=== PATIENT | female | born 1980 | race African-American/Black ===

== ENCOUNTER 2017-11-24 18:18 | Inpatient (IN) ==
[2017-11-24] MEDS ORDERED: SODIUM CHLORIDE 0.9% 500 ML IV STA (19:17)
[2017-11-24 20:00] LABS: Barbiturates Screen,Urine Negative (Negative); Benzodiazepines Screen,Urine Negative (Negative); Cannabinoid Screen,Urine Positive (Negative); Opiate Screen,Urine Positive (Negative); Phencyclidine Screen,Urine Negative (Negative)
[2017-11-24 20:01] LABS: Apearance,Urine CLEAR (Clear); Bilirubin,Urine Negative (Negative); Blood, Urine Negative (Negative); Glucose,Urine (UA) Negative (Negative); Ketones,Urine 20 mg/dL (Negative); Mucus,Urine Occasional /LPF (Occasional); Nitrite,Urine Negative (Negative); Protein,Urine Negative; RBC,Urine <1 /HPF (0-4); Squamous Epithelial Cell,Urine Occasional /HPF (0-10); Urine Color Yellow (Yellow); Urine Specific Gravity 1.013 (1.001-1.035); Urine Urobilinogen < 2.0 EU/DL (0.2-1.0); WBC,Urine 1 /HPF (0-6)
[2017-11-24 20:47] LABS: INR 1.2; PT Patient Result 12.6 SECS; Partial Thromboplastin Time < 21.0 SECS (0-40)
[2017-11-24 21:07] LABS: Troponin I Only < 0.015 NG/ML (0.00-0.045)
[2017-11-24 21:18] LABS: Basophils % 0.7 % (0.0-0.8); Eosinophils % 0.5 % (0.00-10.9); Hematocrit 38.6 VOL% (35.7-47.0); Immature Granulocytes % 0.2 %; Immature Granulocytes Absolute 0.01 #; Lymphocytes # 0.8 10*3/uL (1.4-4.0); Lymphocytes % 20.1 % (21.3-54.2); Mean Corpuscular HGB Conc 33.7 GM/DL (32-36); Mean Corpuscular Hemoglobin 33 PG (27-34); Mean Corpuscular Volume 97.2 FL (87-102); Mean Platelet Volume 10.9 FL (9.6-12.0); Monocytes # 0.4 10*3/uL (0.11-0.8); Monocytes % 10.3 % (1.7-12.7); Neutrophils # 2.8 10*3/uL (1.4-7.4); Neutrophils % 68.2 % (38.7-73.9); Platelet Count 134 T/CUMM (130-400); Red Blood Count 3.97 MC/CUMM (3.8-5.5); Red Cell Distribution Width 14.2 % (9.3-17.3); White Blood Count 4.1 T/CUMM (4-12)
[2017-11-24 21:27] LABS: Alanine Aminotransferase 23 U/L (13-56); Alkaline Phosphatase 147 U/L (45-117); Aspartate Amino Transferase 21 U/L (0-37); Blood Urea Nitrogen 9 MG/DL (7-18); Calcium 9.2 MG/DL (8.5-10.1); Glucose 86 MG/DL (74-106); Osmolality,Calculated 276.4 MOS/KG (273-304); Sodium 140 MMOL/L (136-145); Total Protein 7.1 G/DL (6.4-8.3)
[2017-11-24] MEDS ORDERED: fentaNYL 100 MCG/2 ML VIAL ONE (21:40)
[2017-11-24] MEDS ORDERED: ONDANSETRON 4 MG/2 ML VIAL ONE (21:40)
[2017-11-24] MEDS ORDERED: METOPROLOL TARTRATE 5 MG/5 ML VIAL IV ONE ×2 (23:34→23:41)
[2017-11-25] MEDS ORDERED: NICOTINE 14 MG/24 HR PATCH TRANSDERM PRN (00:45)
[2017-11-25] MEDS ORDERED: ONDANSETRON 4 MG/2 ML VIAL IV PRN (00:45)
[2017-11-25] MEDS ORDERED: ZALEPLON 5 MG CAPSULE PO PRN (00:45)
[2017-11-25] MEDS ORDERED: GABAPENTIN 50 MG/ML 30 ML/BOTTLE PO ONE (01:00)
[2017-11-25] MEDS: METOPROLOL TARTRATE 5 MG/5 ML VIAL IV SCH ×4 (01:02→17:28)
[2017-11-25] MEDS: clonazePAM 0.5 MG TABLET PO SCH ×3 (01:02→20:25)
[2017-11-25] MEDS: hydrALAZINE 20 MG/1 ML VIAL IV PRN (04:34)
[2017-11-25] MEDS: GABAPENTIN 300 MG CAPSULE PO SCH ×5 (05:35→20:25)
[2017-11-25] MEDS: amLODIPine 5 MG TABLET PO SCH (08:29)
[2017-11-25] MEDS: PANTOPRAZOLE 40 MG TABLET PO SCH (08:29)
[2017-11-25] MEDS: DOCUSATE SODIUM 100 MG CAPSULE PO SCH ×2 (08:30→20:26)
[2017-11-25] MEDS: methylPREDNISolone SOD SUC 125 MG/2 ML VIAL IV SCH ×2 (08:30→20:11)
[2017-11-25] MEDS ORDERED: ENOXAPARIN 40 MG/0.4 ML SYRINGE SUBCUT SCH (09:00)
[2017-11-25] MEDS ORDERED: diphenhydrAMINE 50 MG/1 ML VIAL IV ONE (10:14)
[2017-11-25] MEDS ORDERED: LORazepam 2 MG/1 ML VIAL IV ONE (11:30)
[2017-11-25 20:14] LABS: Alanine Aminotransferase 26 U/L (13-56); Albumin 3.9 G/DL (3.4-5.0); Alkaline Phosphatase 148 U/L (45-117); Aspartate Amino Transferase 21 U/L (0-37); Bilirubin,Total < 0.39 MG/DL (0.2-1.0); Blood Urea Nitrogen 14 MG/DL (7-18); Glucose 146 MG/DL (74-106); Osmolality,Calculated 282.4 MOS/KG (273-304); Potassium 4.1 MMOL/L (3.5-5.1); Sodium 140 MMOL/L (136-145); Total Protein 7.1 G/DL (6.4-8.3)
[2017-11-25 21:00] LABS: Basophils % 0.2 % (0.0-0.8); Hematocrit 40.1 VOL% (35.7-47.0); Hemoglobin 13.3 GM/DL (12.0-16.0); Immature Granulocytes % 0.3 %; Immature Granulocytes Absolute 0.02 #; Lymphocytes # 0.8 10*3/uL (1.4-4.0); Lymphocytes % 13.4 % (21.3-54.2); Mean Corpuscular HGB Conc 33.2 GM/DL (32-36); Mean Corpuscular Hemoglobin 32 PG (27-34); Mean Corpuscular Volume 97.8 FL (87-102); Mean Platelet Volume 11.3 FL (9.6-12.0); Monocytes # 0.4 10*3/uL (0.11-0.8); Monocytes % 7.3 % (1.7-12.7); Neutrophils # 4.7 10*3/uL (1.4-7.4); Neutrophils % 78.8 % (38.7-73.9); Platelet Count 181 T/CUMM (130-400); Red Cell Distribution Width 13.9 % (9.3-17.3); White Blood Count 5.9 T/CUMM (4-12)
[2017-11-26] MEDS: METOPROLOL TARTRATE 5 MG/5 ML VIAL IV SCH ×3 (00:37→13:32)
[2017-11-26 06:42] LABS: Hemoglobin 13.3 GM/DL (12.0-16.0); Immature Granulocytes % 0.5 %; Immature Granulocytes Absolute 0.03 #; Lymphocytes # 0.5 10*3/uL (1.4-4.0); Lymphocytes % 8.9 % (21.3-54.2); Mean Corpuscular HGB Conc 34.1 GM/DL (32-36); Mean Corpuscular Hemoglobin 33 PG (27-34); Mean Corpuscular Volume 97.3 FL (87-102); Mean Platelet Volume 11.4 FL (9.6-12.0); Monocytes # 0.5 10*3/uL (0.11-0.8); Monocytes % 7.7 % (1.7-12.7); Neutrophils # 5.1 10*3/uL (1.4-7.4); Neutrophils % 82.9 % (38.7-73.9); Platelet Count 174 T/CUMM (130-400); Red Blood Count 4.01 MC/CUMM (3.8-5.5); Red Cell Distribution Width 14.1 % (9.3-17.3); White Blood Count 6.1 T/CUMM (4-12)
[2017-11-26 07:14] LABS: Albumin 3.7 G/DL (3.4-5.0); Bilirubin,Total 0.4 MG/DL (0.2-1.0); Calcium 9.1 MG/DL (8.5-10.1); Osmolality,Calculated 284.3 MOS/KG (273-304); Potassium 4.3 MMOL/L (3.5-5.1); Total Protein 6.9 G/DL (6.4-8.3)
[2017-11-26] MEDS: GABAPENTIN 300 MG CAPSULE PO SCH ×4 (08:42→22:32)
[2017-11-26] MEDS: DOCUSATE SODIUM 100 MG CAPSULE PO SCH ×2 (08:42→22:32)
[2017-11-26] MEDS: amLODIPine 5 MG TABLET PO SCH (08:42)
[2017-11-26] MEDS: PANTOPRAZOLE 40 MG TABLET PO SCH (08:42)
[2017-11-26] MEDS: clonazePAM 0.5 MG TABLET PO SCH ×2 (08:42→22:32)
[2017-11-26] MEDS: methylPREDNISolone SOD SUC 125 MG/2 ML VIAL IV SCH ×2 (08:54→22:34)
[2017-11-26] MEDS ORDERED: LORazepam 2 MG/1 ML VIAL IV ONE (11:00)
[2017-11-26] MEDS ORDERED: diphenhydrAMINE 50 MG/1 ML VIAL IV ONE (11:00)
[2017-11-26] MEDS: METOPROLOL TARTRATE 50 MG TABLET PO SCH ×2 (15:15→22:32)
[2017-11-26 15:26] LABS: Glucose,CSF 76 MG/DL (40-70)
[2017-11-26 16:03] LABS: Appearance,CSF Clear; Lymphocytes,CSF 100 %; Red Blood Cell,CSF 9 C/CUMM; White Blood Cell,CSF < 1 C/CUMM
[2017-11-27] MEDS ORDERED: ACETAMINOPHEN 500 MG TABLET PO ONE (00:25)
[2017-11-27] MEDS: GABAPENTIN 300 MG CAPSULE PO SCH ×4 (08:13→21:11)
[2017-11-27] MEDS: clonazePAM 0.5 MG TABLET PO SCH ×2 (08:13→21:11)
[2017-11-27] MEDS: METOPROLOL TARTRATE 50 MG TABLET PO SCH ×2 (08:13→21:11)
[2017-11-27] MEDS: DOCUSATE SODIUM 100 MG CAPSULE PO SCH ×2 (08:13→21:11)
[2017-11-27] MEDS: amLODIPine 5 MG TABLET PO SCH ×2 (08:14→21:11)
[2017-11-27] MEDS: PANTOPRAZOLE 40 MG TABLET PO SCH (08:14)
[2017-11-27 09:12] LABS: Eosinophils % 0.1 % (0.00-10.9); Hematocrit 39.7 VOL% (35.7-47.0); Hemoglobin 13.1 GM/DL (12.0-16.0); Immature Granulocytes % 0.6 %; Immature Granulocytes Absolute 0.05 #; Lymphocytes # 0.9 10*3/uL (1.4-4.0); Lymphocytes % 10.1 % (21.3-54.2); Mean Corpuscular Hemoglobin 33 PG (27-34); Mean Platelet Volume 11.3 FL (9.6-12.0); Monocytes # 0.6 10*3/uL (0.11-0.8); Monocytes % 7.2 % (1.7-12.7); Neutrophils # 7.2 10*3/uL (1.4-7.4); Platelet Count 176 T/CUMM (130-400); Red Blood Count 4.01 MC/CUMM (3.8-5.5); White Blood Count 8.7 T/CUMM (4-12)
[2017-11-27 09:32] LABS: Alanine Aminotransferase 21 U/L (13-56); Albumin 3.8 G/DL (3.4-5.0); Alkaline Phosphatase 148 U/L (45-117); Aspartate Amino Transferase 11 U/L (0-37); Bilirubin,Total < 0.39 MG/DL (0.2-1.0); Blood Urea Nitrogen 16 MG/DL (7-18); Calcium 8.6 MG/DL (8.5-10.1); Glucose 138 MG/DL (74-106); Osmolality,Calculated 281.4 MOS/KG (273-304); Potassium 4.1 MMOL/L (3.5-5.1); Sodium 140 MMOL/L (136-145)
[2017-11-27] MEDS: methylPREDNISolone SOD SUC 125 MG/2 ML VIAL IV SCH ×2 (09:35→21:04)
[2017-11-27] MEDS: hydrALAZINE 20 MG/1 ML VIAL IV PRN ×2 (09:37→15:09)
[2017-11-27] MEDS: hydroCHLOROthiazide 25 MG TABLET PO SCH (17:05)
[2017-11-28 06:56] LABS: Basophils % 0.1 % (0.0-0.8); Eosinophils % 0.1 % (0.00-10.9); Hematocrit 42.6 VOL% (35.7-47.0); Hemoglobin 14.1 GM/DL (12.0-16.0); Immature Granulocytes % 0.4 %; Immature Granulocytes Absolute 0.03 #; Lymphocytes # 0.9 10*3/uL (1.4-4.0); Lymphocytes % 11.2 % (21.3-54.2); Mean Corpuscular HGB Conc 33.1 GM/DL (32-36); Mean Corpuscular Hemoglobin 33 PG (27-34); Mean Corpuscular Volume 98.2 FL (87-102); Mean Platelet Volume 11.1 FL (9.6-12.0); Monocytes # 0.9 10*3/uL (0.11-0.8); Monocytes % 11.1 % (1.7-12.7); Neutrophils # 6.5 10*3/uL (1.4-7.4); Neutrophils % 77.1 % (38.7-73.9); Platelet Count 155 T/CUMM (130-400); Red Blood Count 4.34 MC/CUMM (3.8-5.5); Red Cell Distribution Width 14.1 % (9.3-17.3); White Blood Count 8.4 T/CUMM (4-12)
[2017-11-28 07:27] LABS: Albumin 4.1 G/DL (3.4-5.0); Bilirubin,Total 0.4 MG/DL (0.2-1.0); Calcium 9.2 MG/DL (8.5-10.1); Osmolality,Calculated 277.5 MOS/KG (273-304); Total Protein 7.2 G/DL (6.4-8.3)
[2017-11-28 07:51] LABS: Hypochromasia 1+
[2017-11-28 07:52] LABS: Platelet Estimate Adequate
[2017-11-28] MEDS: amLODIPine 5 MG TABLET PO SCH ×2 (08:00→21:24)
[2017-11-28] MEDS: hydroCHLOROthiazide 25 MG TABLET PO SCH (08:00)
[2017-11-28] MEDS: clonazePAM 0.5 MG TABLET PO SCH ×3 (08:01→23:31)
[2017-11-28] MEDS: METOPROLOL TARTRATE 50 MG TABLET PO SCH ×2 (08:01→21:25)
[2017-11-28] MEDS: GABAPENTIN 300 MG CAPSULE PO SCH ×4 (08:01→21:24)
[2017-11-28] MEDS: PANTOPRAZOLE 40 MG TABLET PO SCH (08:01)
[2017-11-28] MEDS: methylPREDNISolone SOD SUC 125 MG/2 ML VIAL IV SCH ×2 (08:01→21:25)
[2017-11-28] MEDS: DOCUSATE SODIUM 100 MG CAPSULE PO SCH ×2 (08:01→21:24)
[2017-11-28] MEDS: hydrALAZINE 20 MG/1 ML VIAL IV PRN (15:45)
[2017-11-28] MEDS: oxyCODONE IR 5 MG TABLET PO PRN (21:25)
[2017-11-28] MEDS: METHOCARBAMOL 750 MG TABLET PO PRN (21:25)
[2017-11-29] MEDS: PANTOPRAZOLE 40 MG TABLET PO SCH (09:34)
[2017-11-29] MEDS: hydroCHLOROthiazide 25 MG TABLET PO SCH (09:34)
[2017-11-29] MEDS: METOPROLOL TARTRATE 50 MG TABLET PO SCH ×2 (09:34→21:09)
[2017-11-29] MEDS: amLODIPine 5 MG TABLET PO SCH ×2 (09:34→21:09)
[2017-11-29] MEDS: DOCUSATE SODIUM 100 MG CAPSULE PO SCH ×2 (09:34→21:09)
[2017-11-29] MEDS: GABAPENTIN 300 MG CAPSULE PO SCH ×4 (09:34→21:09)
[2017-11-29] MEDS: methylPREDNISolone SOD SUC 125 MG/2 ML VIAL IV SCH ×2 (09:35→21:14)
[2017-11-29] MEDS: clonazePAM 0.5 MG TABLET PO SCH (09:35)
[2017-11-29] MEDS: oxyCODONE IR 5 MG TABLET PO PRN ×2 (09:42→16:13)
[2017-11-29] MEDS: METHOCARBAMOL 750 MG TABLET PO PRN ×2 (09:42→16:13)
[2017-11-30] MEDS: clonazePAM 0.5 MG TABLET PO SCH ×3 (00:01→20:57)
[2017-11-30] MEDS: PANTOPRAZOLE 40 MG TABLET PO SCH (08:56)
[2017-11-30] MEDS: hydroCHLOROthiazide 25 MG TABLET PO SCH (08:56)
[2017-11-30] MEDS: amLODIPine 5 MG TABLET PO SCH ×2 (08:56→20:57)
[2017-11-30] MEDS: DOCUSATE SODIUM 100 MG CAPSULE PO SCH ×2 (08:56→20:57)
[2017-11-30] MEDS: GABAPENTIN 300 MG CAPSULE PO SCH ×4 (08:56→20:57)
[2017-11-30] MEDS: methylPREDNISolone SOD SUC 125 MG/2 ML VIAL IV SCH ×2 (09:08→21:25)
[2017-11-30] MEDS: oxyCODONE IR 5 MG TABLET PO PRN ×3 (09:35→20:56)
[2017-11-30] MEDS: METOPROLOL TARTRATE 50 MG TABLET PO SCH ×3 (09:35→20:57)
[2017-11-30] MEDS: METHOCARBAMOL 750 MG TABLET PO PRN ×3 (09:57→20:57)
[2017-11-30] MEDS: ACETAMINOPHEN 325 MG TABLET PO PRN (15:13)
[2017-12-01] MEDS ORDERED: LACTULOSE 20 GM/30 ML UDCUP PO ONE (08:14)
[2017-12-01] MEDS ORDERED: SODIUM PHOSPHATE ENEMA 133 ML BOTTLE RECTAL ONE (08:14)
[2017-12-01] MEDS: clonazePAM 0.5 MG TABLET PO SCH (08:48)
[2017-12-01] MEDS: hydroCHLOROthiazide 25 MG TABLET PO SCH (08:48)
[2017-12-01] MEDS: DOCUSATE SODIUM 100 MG CAPSULE PO SCH (08:48)
[2017-12-01] MEDS: GABAPENTIN 300 MG CAPSULE PO SCH (08:48)
[2017-12-01] MEDS: METOPROLOL TARTRATE 50 MG TABLET PO SCH (08:48)
[2017-12-01] MEDS: amLODIPine 5 MG TABLET PO SCH (08:53)
[2017-12-01] MEDS: PANTOPRAZOLE 40 MG TABLET PO SCH (08:54)
[2017-12-01] MEDS: oxyCODONE IR 5 MG TABLET PO PRN (08:54)
[2017-12-01] MEDS: METHOCARBAMOL 750 MG TABLET PO PRN (08:54)
[2017-12-01] MEDS: methylPREDNISolone SOD SUC 125 MG/2 ML VIAL IV SCH (10:31)
[2017-12-01] MEDS: ACETAMINOPHEN 325 MG TABLET PO PRN (10:48)
[2017-12-01] MEDS ORDERED: HEPARIN LOCK FLUSH 500 UNIT/5 ML SYRINGE IV ONE (11:27)
[2017-12-01 12:17] VITALS: BP 148/99
== END 2017-12-01 12:11 | disposition swing bed (61) | DRG 52 ==
LOC: N.ED 18:18 → N.EDINP 23:25 → N.2E 11-25 00:09 → N.4E 11-28 16:14
PROVIDERS: ADMIT Internal Medicine; ATTEND Internal Medicine

== ENCOUNTER 2017-12-15 19:03 | Inpatient (IN) ==
[2017-12-15] MEDS ORDERED: cefTRIAXone 1,000 MG in SODIUM CHLORIDE 0.9% 100 ML IV STA (20:11)
[2017-12-15] MEDS ORDERED: SODIUM CHLORIDE 0.9% 500 ML IV STA (20:11)
[2017-12-15] MEDS ORDERED: cefTRIAXone 1,000 MG VIAL ONE (21:27)
[2017-12-15] MEDS ORDERED: ACETAMINOPHEN 500 MG TABLET ONE (21:28)
[2017-12-15 21:35] LABS: Basophils % 0.3 % (0.0-0.8); Hematocrit 32.8 VOL% (35.7-47.0); Hemoglobin 11.7 GM/DL (12.0-16.0); Immature Granulocytes % 0.3 %; Immature Granulocytes Absolute 0.02 #; Lymphocytes # 0.5 10*3/uL (1.4-4.0); Lymphocytes % 8.1 % (21.3-54.2); Mean Corpuscular HGB Conc 35.7 GM/DL (32-36); Mean Corpuscular Hemoglobin 33 PG (27-34); Mean Corpuscular Volume 93.2 FL (87-102); Mean Platelet Volume 10.7 FL (9.6-12.0); Monocytes # 0.9 10*3/uL (0.11-0.8); Monocytes % 13.9 % (1.7-12.7); Neutrophils # 4.9 10*3/uL (1.4-7.4); Neutrophils % 77.4 % (38.7-73.9); Platelet Count 142 T/CUMM (130-400); Red Blood Count 3.52 MC/CUMM (3.8-5.5); White Blood Count 6.3 T/CUMM (4-12)
[2017-12-15 21:44] LABS: INR 1.1
[2017-12-15 21:53] LABS: Lactic Acid 0.8 MMOL/L (0.4-2.0)
[2017-12-15 21:54] LABS: Albumin 2.9 G/DL (3.4-5.0); Bilirubin,Total 0.5 MG/DL (0.2-1.0); Calcium 8.8 MG/DL (8.5-10.1); Total Protein 6.6 G/DL (6.4-8.3)
[2017-12-15] MEDS ORDERED: ACETAMINOPHEN 500 MG TABLET PO STA (21:54)
[2017-12-15] MEDS ORDERED: HYDROmorphone 2 MG/1 ML VIAL ONE (21:59)
[2017-12-15] MEDS ORDERED: HYDROmorphone 2 MG/1 ML VIAL IV STA (22:00)
[2017-12-15] MEDS ORDERED: POTASSIUM CHLORIDE 20 MEQ TABLET PO STA (22:38)
[2017-12-15 22:45] LABS: Apearance,Urine CLOUDY (Clear); Bilirubin,Urine Negative (Negative); Blood, Urine Small mg/dL (Negative); Glucose,Urine (UA) Negative (Negative); Ketones,Urine 20 mg/dL (Negative); Mucus,Urine Occasional /LPF (Occasional); Nitrite,Urine Negative (Negative); Protein,Urine 100 MG/DL; RBC,Urine 38 /HPF (0-4); Urine Color Yellow (Yellow); WBC,Urine 402 /HPF (0-6)
[2017-12-16] MEDS ORDERED: POTASSIUM CHLORIDE 20 MEQ TABLET PO ONE ×2 (00:07→10:07)
[2017-12-16] MEDS: LEVOFLOXACIN INJ 500 MG in PREMIX 1 EACH IV SCH (02:29)
[2017-12-16] MEDS: SODIUM CHLORIDE 0.9% 1,000 ML IV SCH ×2 (02:30→15:47)
[2017-12-16 06:17] LABS: Basophils % 0.4 % (0.0-0.8); Eosinophils % 0.2 % (0.00-10.9); Hematocrit 33.5 VOL% (35.7-47.0); Hemoglobin 11.7 GM/DL (12.0-16.0); Immature Granulocytes % 0.4 %; Immature Granulocytes Absolute 0.02 #; Lymphocytes # 0.5 10*3/uL (1.4-4.0); Lymphocytes % 8.8 % (21.3-54.2); Mean Corpuscular HGB Conc 34.9 GM/DL (32-36); Mean Corpuscular Hemoglobin 33 PG (27-34); Mean Corpuscular Volume 93.1 FL (87-102); Mean Platelet Volume 10.8 FL (9.6-12.0); Monocytes # 0.7 10*3/uL (0.11-0.8); Monocytes % 12.6 % (1.7-12.7); Neutrophils # 4.3 10*3/uL (1.4-7.4); Neutrophils % 77.6 % (38.7-73.9); Platelet Count 135 T/CUMM (130-400); Red Cell Distribution Width 12.2 % (9.3-17.3); White Blood Count 5.5 T/CUMM (4-12)
[2017-12-16 06:35] LABS: Band Neutrophils 2 % (0-10); Burr Cells Slight; Giant Platelets Few; Hypochromasia 1+; Lymphocytes 5 % (20-55); Microcytosis Slight; Ovalocytes Slight; Platelet Estimate Normal; Segmented Neutrophils 81 % (50-85); Total Cells Counted 100
[2017-12-16 06:48] LABS: Calcium 8.6 MG/DL (8.5-10.1); Osmolality,Calculated 276.4 MOS/KG (273-304); Potassium 3.4 MMOL/L (3.5-5.1)
[2017-12-16] MEDS: ENOXAPARIN 40 MG/0.4 ML SYRINGE SUBCUT SCH (08:09)
[2017-12-16] MEDS: PANTOPRAZOLE 40 MG TABLET PO SCH (08:09)
[2017-12-16] MEDS: ACETAMINOPHEN 325 MG TABLET PO PRN ×3 (09:10→23:27)
[2017-12-16] MEDS ORDERED: PROCHLORPERAZINE 10 MG TABLET PO PRN (11:00)
[2017-12-16] MEDS: MULTIVITAMIN (BEROCCA) TABLET PO SCH (11:17)
[2017-12-16] MEDS: GABAPENTIN 300 MG CAPSULE PO SCH ×3 (13:49→21:59)
[2017-12-16] MEDS: NICOTINE 14 MG/24 HR PATCH TRANSDERM PRN (15:47)
[2017-12-16] MEDS: FAMOTIDINE 20 MG TABLET PO SCH (21:56)
[2017-12-16] MEDS: clonazePAM 0.5 MG TABLET PO SCH (21:57)
[2017-12-16] MEDS: oxyCODONE IR 5 MG TABLET PO PRN (21:57)
[2017-12-16] MEDS: amLODIPine 5 MG TABLET PO SCH (21:59)
[2017-12-16] MEDS: DOCUSATE SODIUM 100 MG CAPSULE PO SCH (21:59)
[2017-12-16] MEDS: METOPROLOL TARTRATE 50 MG TABLET PO SCH (21:59)
[2017-12-16] MEDS: ZALEPLON 5 MG CAPSULE PO PRN (22:00)
[2017-12-17] MEDS: LEVOFLOXACIN INJ 500 MG in PREMIX 1 EACH IV SCH (02:36)
[2017-12-17 05:26] LABS: Eosinophils % 0.4 % (0.00-10.9); Hematocrit 31.5 VOL% (35.7-47.0); Hemoglobin 10.9 GM/DL (12.0-16.0); Lymphocytes # 0.4 10*3/uL (1.4-4.0); Lymphocytes % 15.5 % (21.3-54.2); Mean Corpuscular HGB Conc 34.6 GM/DL (32-36); Mean Corpuscular Hemoglobin 32 PG (27-34); Mean Corpuscular Volume 92.9 FL (87-102); Mean Platelet Volume 10.5 FL (9.6-12.0); Monocytes # 0.3 10*3/uL (0.11-0.8); Monocytes % 12.7 % (1.7-12.7); Neutrophils # 1.8 10*3/uL (1.4-7.4); Neutrophils % 71.4 % (38.7-73.9); Platelet Count 124 T/CUMM (130-400); Red Blood Count 3.39 MC/CUMM (3.8-5.5); Red Cell Distribution Width 12.3 % (9.3-17.3); White Blood Count 2.5 T/CUMM (4-12)
[2017-12-17 05:50] LABS: Band Neutrophils 4 % (0-10); Giant Platelets Few; Hypochromasia 1+; Lymphocytes 16 % (20-55); Microcytosis Slight; Platelet Estimate Normal; Segmented Neutrophils 75 % (50-85); Total Cells Counted 100
[2017-12-17 05:53] LABS: Calcium 8.3 MG/DL (8.5-10.1); Osmolality,Calculated 277.3 MOS/KG (273-304); Potassium 3.3 MMOL/L (3.5-5.1)
[2017-12-17] MEDS: SODIUM CHLORIDE 0.9% 1,000 ML IV SCH ×2 (06:30→18:01)
[2017-12-17] MEDS: LETROZOLE 2.5 MG TABLET PO SCH (08:51)
[2017-12-17] MEDS: amLODIPine 5 MG TABLET PO SCH ×2 (08:52→20:08)
[2017-12-17] MEDS: clonazePAM 0.5 MG TABLET PO SCH ×2 (08:55→20:08)
[2017-12-17] MEDS: PANTOPRAZOLE 40 MG TABLET PO SCH (08:55)
[2017-12-17] MEDS: VENLAFAXINE XR 37.5 MG CAPSULE PO SCH (08:56)
[2017-12-17] MEDS: GABAPENTIN 300 MG CAPSULE PO SCH ×4 (08:56→20:08)
[2017-12-17] MEDS: DOCUSATE SODIUM 100 MG CAPSULE PO SCH ×2 (08:57→20:08)
[2017-12-17] MEDS: METOPROLOL TARTRATE 50 MG TABLET PO SCH ×2 (08:57→20:08)
[2017-12-17] MEDS: MULTIVITAMIN (BEROCCA) TABLET PO SCH (08:58)
[2017-12-17] MEDS: ENOXAPARIN 40 MG/0.4 ML SYRINGE SUBCUT SCH (08:59)
[2017-12-17] MEDS ORDERED: predniSONE 20 MG TABLET PO SCH (09:00)
[2017-12-17] MEDS: oxyCODONE IR 5 MG TABLET PO PRN ×2 (09:25→22:20)
[2017-12-17] MEDS: METHOCARBAMOL 750 MG TABLET PO PRN ×2 (09:25→22:21)
[2017-12-17] MEDS: ACETAMINOPHEN 325 MG TABLET PO PRN (11:59)
[2017-12-17] MEDS: NICOTINE 14 MG/24 HR PATCH TRANSDERM PRN (13:04)
[2017-12-17] MEDS: POTASSIUM CHLORIDE 20 MEQ TABLET PO SCH ×2 (13:36→19:56)
[2017-12-17] MEDS: cefTRIAXone 1,000 MG in SYRINGE 1 EACH IV SCH (13:37)
[2017-12-17] MEDS: FAMOTIDINE 20 MG TABLET PO SCH (20:08)
[2017-12-17] MEDS: ZALEPLON 5 MG CAPSULE PO PRN (22:21)
[2017-12-18] MEDS: LEVOFLOXACIN INJ 500 MG in PREMIX 1 EACH IV SCH (01:24)
[2017-12-18] MEDS: SODIUM CHLORIDE 0.9% 1,000 ML IV SCH ×2 (02:38→16:15)
[2017-12-18 05:58] LABS: Basophils % 0.4 % (0.0-0.8); Eosinophils % 1.7 % (0.00-10.9); Hemoglobin 9.7 GM/DL (12.0-16.0); Lymphocytes # 0.5 10*3/uL (1.4-4.0); Lymphocytes % 20.8 % (21.3-54.2); Mean Corpuscular HGB Conc 33.4 GM/DL (32-36); Mean Corpuscular Hemoglobin 32 PG (27-34); Mean Corpuscular Volume 94.5 FL (87-102); Mean Platelet Volume 10.3 FL (9.6-12.0); Monocytes # 0.5 10*3/uL (0.11-0.8); Monocytes % 21.3 % (1.7-12.7); Neutrophils # 1.3 10*3/uL (1.4-7.4); Neutrophils % 55.8 % (38.7-73.9); Platelet Count 134 T/CUMM (130-400); Red Blood Count 3.07 MC/CUMM (3.8-5.5); Red Cell Distribution Width 12.3 % (9.3-17.3); White Blood Count 2.4 T/CUMM (4-12)
[2017-12-18 06:16] LABS: Calcium 8.2 MG/DL (8.5-10.1); Osmolality,Calculated 276.4 MOS/KG (273-304); Potassium 3.3 MMOL/L (3.5-5.1)
[2017-12-18 06:23] LABS: Band Neutrophils 5 % (0-10); Lymphocytes 25 % (20-55); Segmented Neutrophils 55 % (50-85); Total Cells Counted 100
[2017-12-18 06:24] LABS: Hypochromasia 1+; Platelet Estimate Decreased
[2017-12-18] MEDS: oxyCODONE IR 5 MG TABLET PO PRN ×2 (08:10→19:53)
[2017-12-18] MEDS: VENLAFAXINE XR 37.5 MG CAPSULE PO SCH (08:10)
[2017-12-18] MEDS: METHOCARBAMOL 750 MG TABLET PO PRN ×2 (08:13→19:53)
[2017-12-18] MEDS: GABAPENTIN 300 MG CAPSULE PO SCH (08:13)
[2017-12-18] MEDS ORDERED: GABAPENTIN 300 MG CAPSULE PO ONE (10:00)
[2017-12-18] MEDS: MULTIVITAMIN (BEROCCA) TABLET PO SCH (10:10)
[2017-12-18] MEDS: GABAPENTIN 600 MG TABLET PO SCH ×3 (10:11→20:53)
[2017-12-18] MEDS: PANTOPRAZOLE 40 MG TABLET PO SCH (10:12)
[2017-12-18] MEDS: LETROZOLE 2.5 MG TABLET PO SCH (10:13)
[2017-12-18] MEDS: DOCUSATE SODIUM 100 MG CAPSULE PO SCH ×2 (10:13→20:53)
[2017-12-18] MEDS: amLODIPine 5 MG TABLET PO SCH ×2 (10:13→20:59)
[2017-12-18] MEDS: clonazePAM 0.5 MG TABLET PO SCH ×2 (10:13→20:54)
[2017-12-18] MEDS: METOPROLOL TARTRATE 50 MG TABLET PO SCH ×2 (10:13→20:54)
[2017-12-18] MEDS: ENOXAPARIN 40 MG/0.4 ML SYRINGE SUBCUT SCH (10:14)
[2017-12-18] MEDS ORDERED: SODIUM PHOSPHATE ENEMA 133 ML BOTTLE RECTAL ONE (14:48)
[2017-12-18] MEDS: cefTRIAXone 1,000 MG in SYRINGE 1 EACH IV SCH (15:07)
[2017-12-18] MEDS: POTASSIUM CHLORIDE 20 MEQ TABLET PO SCH ×2 (16:15→20:53)
[2017-12-18] MEDS: FAMOTIDINE 20 MG TABLET PO SCH (20:53)
[2017-12-18] MEDS: ZALEPLON 5 MG CAPSULE PO PRN (20:54)
[2017-12-18] MEDS: NICOTINE 14 MG/24 HR PATCH TRANSDERM PRN (21:13)
[2017-12-19] MEDS: LEVOFLOXACIN INJ 500 MG in PREMIX 1 EACH IV SCH (01:53)
[2017-12-19 04:46] LABS: Basophils % 0.4 % (0.0-0.8); Eosinophils % 1.4 % (0.00-10.9); Hematocrit 30.5 VOL% (35.7-47.0); Hemoglobin 10.3 GM/DL (12.0-16.0); Lymphocytes # 0.6 10*3/uL (1.4-4.0); Lymphocytes % 19.6 % (21.3-54.2); Mean Corpuscular HGB Conc 33.8 GM/DL (32-36); Mean Corpuscular Hemoglobin 32 PG (27-34); Mean Corpuscular Volume 94.7 FL (87-102); Mean Platelet Volume 10.2 FL (9.6-12.0); Monocytes # 0.6 10*3/uL (0.11-0.8); Monocytes % 20.7 % (1.7-12.7); Neutrophils # 1.6 10*3/uL (1.4-7.4); Neutrophils % 57.9 % (38.7-73.9); Platelet Count 143 T/CUMM (130-400); Red Blood Count 3.22 MC/CUMM (3.8-5.5); Red Cell Distribution Width 12.3 % (9.3-17.3); White Blood Count 2.8 T/CUMM (4-12)
[2017-12-19 05:32] LABS: Calcium 8.4 MG/DL (8.5-10.1); Osmolality,Calculated 277.3 MOS/KG (273-304); Potassium 4.1 MMOL/L (3.5-5.1)
[2017-12-19 05:36] LABS: Band Neutrophils 3 % (0-10); Eosinophils 3 % (0-10); Hypochromasia 1+; Lymphocytes 19 % (20-55); Segmented Neutrophils 57 % (50-85); Total Cells Counted 100
[2017-12-19 05:37] LABS: Microcytosis Slight; Platelet Estimate Adequate
[2017-12-19] MEDS: POTASSIUM CHLORIDE 20 MEQ TABLET PO SCH (08:36)
[2017-12-19] MEDS: PANTOPRAZOLE 40 MG TABLET PO SCH (08:36)
[2017-12-19] MEDS: clonazePAM 0.5 MG TABLET PO SCH (08:36)
[2017-12-19] MEDS: METHOCARBAMOL 750 MG TABLET PO PRN (08:36)
[2017-12-19] MEDS: oxyCODONE IR 5 MG TABLET PO PRN (08:36)
[2017-12-19] MEDS: DOCUSATE SODIUM 100 MG CAPSULE PO SCH (08:36)
[2017-12-19] MEDS: ENOXAPARIN 40 MG/0.4 ML SYRINGE SUBCUT SCH (08:36)
[2017-12-19] MEDS: MULTIVITAMIN (BEROCCA) TABLET PO SCH (08:37)
[2017-12-19] MEDS: LETROZOLE 2.5 MG TABLET PO SCH (08:37)
[2017-12-19] MEDS: VENLAFAXINE XR 37.5 MG CAPSULE PO SCH (08:37)
[2017-12-19] MEDS: GABAPENTIN 600 MG TABLET PO SCH ×2 (08:38→15:30)
[2017-12-19] MEDS: METOPROLOL TARTRATE 50 MG TABLET PO SCH (08:39)
[2017-12-19] MEDS: amLODIPine 5 MG TABLET PO SCH (08:39)
[2017-12-19] MEDS: SODIUM CHLORIDE 0.9% 1,000 ML IV SCH (08:41)
[2017-12-19 12:35] VITALS: BP 110/74
[2017-12-19] MEDS: cefTRIAXone 1,000 MG in SYRINGE 1 EACH IV SCH (15:30)
== END 2017-12-19 17:26 | disposition home health service (06) | DRG 690 ==
LOC: EDBD → EDUNIT# → N.ED 19:03 → N.EDINP 12-16 00:27 → SUATTDRO 12-16 00:27 → N.4E 12-16 01:24
PROVIDERS: ADMIT Internal Medicine; ATTEND Internal Medicine